=== PATIENT | female | born 1995 | race African-American/Black ===

== ENCOUNTER 2017-10-22 13:59 | Emergency (ER) | payer OTHER ==
[~2017-10-22] VITALS: Ht 175.3 cm; Wt 85.0 kg
[2017-10-22 16:17] LABS: CLARITY URINE CLEAR (CLEAR); COLOR URINE YELLOW (YELLOW); KETONES URINE NEGATIVE (NEGATIVE); LEUKOCYTE ESTERASE URINE 1+ (NEGATIVE); NITRITE URINE NEGATIVE (NEGATIVE); OCCULT BLOOD URINE NEGATIVE (NEGATIVE); PH URINE 5.5 (4.5-8.0); PROTEIN URINE NEGATIVE (NEGATIVE); SPECIFIC GRAVITY URINE 1.028 (1.005-1.030); UROBILINOGEN URINE 0.2 E.U./dL (0.2-1.0)
[2017-10-22] MEDS ORDERED: AZITHROMYCIN 500 MG TABLET PO ONE (16:45)
[2017-10-22] MEDS ORDERED: CEFTRIAXONE SODIUM 250 MG/VIAL IM ONE (16:45)
[2017-10-22] MEDS ORDERED: LIDOCAINE HCL 1% 20ML VIAL (Pyxis) INJ INFIL ONE (16:45)
[2017-10-22] MEDS ORDERED: LIDOCAINE HCL/PF 1% 10 MG/ML 5ML VIAL IJ SCH (16:57)
[2017-10-22 17:37] VITALS: BP 118/74
== END 2017-10-22 18:07 | disposition home or self-care (01) ==
LOC: ER 13:59
DX: N39.0 Urinary tract infection, site not specified (principal); R10.2 Pelvic and perineal pain
CPT/HCPCS: 81003; 81025; 96372; 99283; J0696; J3490